=== PATIENT | female | born 1960 | race Hispanic/Latino ===

== ENCOUNTER 2018-03-24 10:18 | Emergency (ER) | payer SELFPAY ==
[2018-03-24] MEDS ORDERED: FAMOTIDINE 20 MG/2 ML VIAL IV ONE (10:54)
[2018-03-24 11:22] LABS: Absolute Monocytes 0.4 K/uL (0.1-1.3); Basophils % 1.4 % (0-1.3); Eosinophils % 1.1 % (0-4.4); Lymphocytes % 30.5 % (15.3-44.8); MCH 29.2 pg (27.0-35.0); MCV 89.1 fL (80-100); MPV 9.2 fL (7.6-11.3); Monocytes % 6.7 % (3.3-12.3); RBC Red Blood Cell Count 4.71 M/uL (3.86-4.86)
[2018-03-24 11:23] LABS: Protime INR 1.04
[2018-03-24 11:34] LABS: Bicarbonate 25 mEq/L (21-31); Glucose Level 107 mg/dL (65-120); Potassium 3.6 mEq/L (3.6-5.0); Sodium Level 138 mEq/L (135-145)
[2018-03-24 11:40] LABS: ALT/SGPT 21 IU/L (10-60); AST/SGOT 24 IU/L (10-42); Albumin 4.1 g/dL (3.2-5.5); Alkaline Phosphatase 83 IU/L (42-121); BUN Blood Urea Nitrogen 10 mg/dL (6-20); Bilirubin Direct 0.1 mg/dL (0-0.2); Bilirubin Total 0.8 mg/dL (0.3-1.2); Magnesium 2.1 mg/dL (1.8-2.5); Protein, Total 7.6 g/dL (6.0-8.3)
--- NOTE | 2018-03-24 12:28 | RAD REPORT ---
EXAM DESCRIPTION: Zachariah Single View03/24/2018 11:03 am CLINICAL HISTORY: Chest pain COMPARISON: none FINDINGS: The lungs appear clear of acute infiltrate. The heart is normal size IMPRESSION: No acute abnormalities displayed
--- NOTE | 2018-03-24 13:56 | ER ---
Nurse's Notes [facility] Name: Eula Mauro Age: 57 yrs Sex: Female : 1960 Arrival Date: 03/24/2018 Time: 10:24 Bed 13 Private MD: Diagnosis: Chest pain, unspecified Presentation: 03/24 10:15 Presenting complaint: EMS states: Pt. is 57 yr. old female that works at [employer] and c/o chest pain that radiates to the back with severe indigestion. Pain 9/10. EMS administered Nitro Neola x 1 and Aspirin 324 mg PO. Pt. is Libyan speaking only. Pt. has NKA. 12- lead was negative. Transition of care: patient was not received from another setting of care. Onset of symptoms was March 24, 2018 at 09:50. Initial Sepsis Screen: Does the patient meet any 2 criteria? No. Patient's initial sepsis screen is negative. Does the patient have a suspected source of infection? No. Patient's initial sepsis screen is negative. Care prior to arrival: Medication(s) given: ASA, 324 mg x 1 Nitro spray x 1. 10:15 Method Of Arrival: EMS: [facility] rb1 10:15 Acuity: LIYA 3 rb1 Triage Assessment: 10:15 General: Appears in no apparent distress. comfortable, Behavior is calm, cooperative. rb1 Pain: Complains of pain in chest Pain radiates to left scapular area Pain is intermittent and pt. denies pain at this time. Neuro: Level of Consciousness is awake, alert, obeys commands, Oriented to person, place, time, situation. Neuro: Reports dizziness. Cardiovascular: Capillary refill < 3 seconds is brisk in bilateral fingers. Respiratory: Airway is patent Respiratory effort is even, unlabored, Respiratory pattern is regular, symmetrical. GI: Reports nausea. : No signs and/or symptoms were reported regarding the genitourinary system. Derm: Skin is dry, Skin is normal, Skin temperature is warm. Musculoskeletal: Range of motion: intact in all extremities. 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 - Social history:: Smoking status: Patient/guardian denies using tobacco. Screenin:15 Abuse screen: Denies threats or abuse. Nutritional screening: No deficits noted. rb1 Tuberculosis screening: No symptoms or risk factors identified. Fall Risk None identified. Assessment: 10:15 Pain: Pain began 30 min ago. rb1 10:15 General: See triage assessment. rb1 11:11 Reassessment: Patient appears in no apparent distress at this time. Patient and/or rb1 family updated on plan of care and expected duration. Pain level reassessed. Patient is alert, oriented x 3, equal unlabored respirations, skin warm/dry/pink. Family at bedside. Patient denies pain at this time. 12:10 Reassessment: Patient appears in no apparent distress at this time. No changes from rb1 previously documented assessment. 13:09 Reassessment: Patient appears in no apparent distress at this time. Patient and/or rb1 family updated on plan of care and expected duration. Pain level reassessed. Patient is alert, oriented x 3, equal unlabored respirations, skin warm/dry/pink. Patient states feeling better. 14:00 Reassessment: Patient appears in no apparent distress at this time. No changes from rb1 previously documented assessment. Family at bedside. Vital Signs: 10:15 BP 122 / 74; Pulse 69; Resp 18; Temp 98.0(O); Pulse Ox 99% on R/A; Weight 63.96 kg; rb1 Height 5 ft. 1 in. (154.94 cm); Pain 0/10; 12:29 BP 111 / 56; Pulse 61; Resp 18; Pulse Ox 100% on R/A; rb1 13:30 BP 111 / 65; Pulse 52; Resp 16; Pulse Ox 100% on R/A; Pain 0/10; rb1 14:00 BP 121 / 77; Pulse 57; Resp 20; Pulse Ox 100% on R/A; Pain 0/10; rb1 14:25 BP 121 / 77; Pulse 59; Resp 16; Pulse Ox 100% on R/A; rb1 10:15 Body Mass Index 26.64 (63.96 kg, 154.94 cm) rb1 ED Course: 10:15 Maintain EMS IV. Dressing intact. Good blood return noted. Site clean \T\ dry. Gauge \T\ rb 1 site: 20 g Right AC. Patient maintains SpO2 saturation greater than 95% on room air. 10:15 Patient has correct armband on for positive identification. 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 Pulse rb1 ox on. NIBP on. 10:15 Arm band placed on right wrist. rb1 10:24 Patient arrived in ED. aa5 10:24 Gagan Mccallum PA is PHCP. jr8 10:24 Esteban Irving MD is Attending Physician. jr8 10:30 EKG done, by ED staff, reviewed by Gagan NUNEZ. em1 10:32 Nereida Brasher, RN is Primary Nurse. rb1 10:37 Triage completed. rb1 10:56 Initial lab(s) drawn, by me, sent to lab. em1 11:03 XRAY Chest (1 view) In Process Unspecified. EDMS 13:55 Andre Ortiz MD is Referral Physician. jr8 14:27 No provider procedures requiring assistance completed. IV discontinued, intact, rb1 bleeding controlled, No redness/swelling at site. Pressure dressing applied. Administered Medications: 10:58 Drug: Pepcid 20 mg Route: IVP; Site: right antecubital; rb1 11:14 Follow up: Response: No adverse reaction rb1 Outcome: 13:56 Discharge ordered by MD. jr8 14:27 Discharged to home ambulatory, with family. rb1 14:27 Condition: stable 14:27 Discharge instructions given to patient, Instructed on discharge instructions, the need for admit, Demonstrated understanding of instructions, follow-up care, Prescriptions given X none 14:28 Patient left the ED. rb1 Signatures: Dispatcher [employer] EDMS Chandler Soares em1 Lillie Gonzalez, DISHA RN aa5 Gagan Mccallum PA PA jr8 Nereida Brasher, RN RN rb1 Corrections: (The following items were deleted from the chart) 12:28 10:15 Pain: Pain began 30 min ago. rb1 rb1
--- NOTE | 2018-03-24 13:56 | EDPHYS ---
Physician Documentation [facility] Name: Eula Mauro Age: 57 yrs Sex: Female : 1960 Arrival Date: 03/24/2018 Time: 10:24 Bed 13 Private MD: ED Physician Esteban Irving HPI: 03/24 10:36 This 57 yrs old Female presents to ER via Unassigned with complaints of Chest jr8 Pain. 10:36 The patient or guardian reports chest pain that is located primarily in the substernal jr8 area. Onset: acutely, today. The pain radiates to the left arm. Associated signs and symptoms: The patient has no apparent associated signs or symptoms. The chest pain is described as dull. Duration: The patient or guardian reports multiple episodes, that are intermittent. Modifying factors: The symptoms are alleviated by nothing. the symptoms are aggravated by nothing. Severity of pain: At its worst the pain was mild in the emergency department the pain is unchanged. The patient has not experienced similar symptoms in the past. The patient has not recently seen a physician. 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 - Social history:: Smoking status: Patient/guardian denies using tobacco. ROS: 10:36 Eyes: Negative for injury, pain, redness, and discharge, ENT: Negative for injury, jr8 pain, and discharge, Neck: Negative for injury, pain, and swelling, Respiratory: Negative for shortness of breath, cough, wheezing, and pleuritic chest pain, Abdomen/GI: Negative for abdominal pain, nausea, vomiting, diarrhea, and constipation, Back: Negative for injury and pain, MS/Extremity: Negative for injury and deformity, Skin: Negative for injury, rash, and discoloration, Neuro: Negative for headache, weakness, numbness, tingling, and seizure. 10:36 Cardiovascular: Positive for chest pain, Negative for edema, orthopnea, palpitations, paroxysmal nocturnal dyspnea. Exam: 10:36 Eyes: Pupils equal round and reactive to light, extra-ocular motions intact. Lids and jr8 lashes normal. Conjunctiva and sclera are non-icteric and not injected. Cornea within normal limits. Periorbital areas with no swelling, redness, or edema. ENT: Nares patent. No nasal discharge, no septal abnormalities noted. Tympanic membranes are normal and external auditory canals are clear. Oropharynx with no redness, swelling, or masses, exudates, or evidence of obstruction, uvula midline. Mucous membranes moist. Neck: Trachea midline, no thyromegaly or masses palpated, and no cervical lymphadenopathy. Supple, full range of motion without nuchal rigidity, or vertebral point tenderness. No Meningismus. Cardiovascular: Regular rate and rhythm with a normal S1 and S2. No gallops, murmurs, or rubs. Normal PMI, no JVD. No pulse deficits. Respiratory: Lungs have equal breath sounds bilaterally, clear to auscultation and percussion. No rales, rhonchi or wheezes noted. No increased work of breathing, no retractions or nasal flaring. Abdomen/GI: Soft, non-tender, with normal bowel sounds. No distension or tympany. No guarding or rebound. No evidence of tenderness throughout. Back: No spinal tenderness. No costovertebral tenderness. Full range of motion. Skin: Warm, dry with normal turgor. Normal color with no rashes, no lesions, and no evidence of cellulitis. MS/ Extremity: Pulses equal, no cyanosis. Neurovascular intact. Full, normal range of motion. Neuro: Awake and alert, GCS 15, oriented to person, place, time, and situation. Cranial nerves II-XII grossly intact. Motor strength 5/5 in all extremities. Sensory grossly intact. Cerebellar exam normal. Normal gait. Vital Signs: 10:15 BP 122 / 74; Pulse 69; Resp 18; Temp 98.0(O); Pulse Ox 99% on R/A; Weight 63.96 kg; rb1 Height 5 ft. 1 in. (154.94 cm); Pain 0/10; 12:29 BP 111 / 56; Pulse 61; Resp 18; Pulse Ox 100% on R/A; rb1 13:30 BP 111 / 65; Pulse 52; Resp 16; Pulse Ox 100% on R/A; Pain 0/10; rb1 14:00 BP 121 / 77; Pulse 57; Resp 20; Pulse Ox 100% on R/A; Pain 0/10; rb1 14:25 BP 121 / 77; Pulse 59; Resp 16; Pulse Ox 100% on R/A; rb1 10:15 Body Mass Index 26.64 (63.96 kg, 154.94 cm) rb1 MDM: 10:24 Patient medically screened. jr8 10:37 Differential diagnosis: acute myocardial infarction, acute pericarditis, chest wall jr8 pain, cholecystitis, Cholelithiasis costochondritis, esophagitis, gastritis, gastroesophageal reflux disease (GERD), pneumonia, pulmonary embolus, thoracic aortic disection, unstable angina. The patient was not given aspirin in the Emergency Department. Administered by EMS. 13:54 HEART Score: History: Slightly Suspicious (0), ECG: Normal (0), Age: > 45 and < 65 jr8 years (1), Risk Factors: No Risk Factors Known (0), Troponin: < or = 1 x Normal Limit (0). Data reviewed: vital signs, nurses notes, lab test result(s), EKG, radiologic studies, plain films, and as a result, I will discharge patient. Data interpreted: Pulse oximetry: on room air is 100 %. Interpretation: normal. Counseling: I had a detailed discussion with the patient and/or guardian regarding: the historical points, exam findings, and any diagnostic results supporting the discharge/admit diagnosis, lab results, radiology results, the need for outpatient follow up, a dock hand, to return to the emergency department if symptoms worsen or persist or if there are any questions or concerns that arise at home. 03/24 10:36 Order name: Basic Metabolic Panel; Complete Time: 11:03/24 10:36 Order name: BNP; Complete Time: 12:03/24 10:36 Order name: CBC with Diff; Complete Time: 11:03/24 10:36 Order name: LFT's; Complete Time: 11:03/24 10:36 Order name: Magnesium; Complete Time: :03/24 10:36 Order name: PT-INR; Complete Time: 11:03/24 10:36 Order name: Troponin (emerg Dept Use Only); Complete Time: 12:47 03/24 10:36 Order name: XRAY Chest (1 view); Complete Time: 12:37 03/24 10:36 Order name: EKG; Complete Time: 10:37 03/24 10:36 Order name: Cardiac monitoring; Complete Time: 12:29 03/24 10:36 Order name: EKG - Nurse/Tech; Complete Time: 10:56 03/24 10:36 Order name: IV Saline Lock; Complete Time: 12:30 03/24 12:59 Order name: Troponin (emerg Dept Use Only); Complete Time: 13:54 aa5 03/24 10:36 Order name: Labs collected and sent; Complete Time: 10:56 03/24 10:36 Order name: O2 Per Protocol; Complete Time: 12:30 03/24 10:36 Order name: O2 Sat Monitoring; Complete Time: 12:30 Administered Medications: 10:58 Drug: Pepcid 20 mg Route: IVP; Site: right antecubital; rb1 11:14 Follow up: Response: No adverse reaction rb1 Disposition: 03/25 09:18 Co-signature as Attending Physician, Esteban Irving MD I agree with the assessment and [facility] plan of care. Disposition: 03/24/18 13:56 Discharged to Home. Impression: Chest pain, unspecified. - Condition is Stable. - Discharge Instructions: Nonspecific Chest Pain, Aspirin and Your Heart. - Medication Reconciliation Form, Thank You Letter, Antibiotic Education, Prescription Opioid Use form. - Follow up: Andre Ortiz MD; When: 1 - 2 days; Reason: Recheck today's complaints, Continuance of care, Re-evaluation by your physician. - Problem is new. - Symptoms have improved. Signatures: Dispatcher [employer] EDEsteban Ibanez MD MD cha Roszak, Josh, PA PA jr8 Nereida Brasher, RN RN rb1 Corrections: (The following items were deleted from the chart) 03/24 14:27 10:36 Urine Dipstick-Ancillary ordered. jr8 rb1 14:28 13:56 03/24/2018 13:56 Discharged to Home. Impression: Chest pain, unspecified. rb1 Condition is Stable. Forms are Medication Reconciliation Form, Thank You Letter, Antibiotic Education, Prescription Opioid Use. Follow up: Andre Ortiz; When: 1 - 2 days; Reason: Recheck today's complaints, Continuance of care, Re-evaluation by your physician. Problem is new. Symptoms have improved. jr8
--- NOTE | 2018-03-24 14:04 | EKG ---
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
== END 2018-03-24 14:28 | disposition home or self-care (01) ==
LOC: ER 10:18
DX: R07.9 Chest pain, unspecified (principal); R73.03 Prediabetes
CPT/HCPCS: 36415; 71045; 80048; 80076; 83735; 83880; 84484; 85025; 85610; 93005; 96374; 99285

== ENCOUNTER 2021-06-03 17:21 | Emergency (ER) | payer SELFPAY ==
--- NOTE | 2021-06-03 18:26 | EDPHYS ---
Physician Documentation [facility] Name: Eula Mauro Age: 60 yrs Sex: Female : 1960 Arrival Date: 06/03/2021 Time: 17:24 Bed Waiting Private MD: Tevin Haynes R ED Physician Esteban Irving HPI: 06/03 18:20 This 60 yrs old Female presents to ER via Ambulatory with complaints of Eye luis Problem. 18:20 to the right eye. Onset: The symptoms/episode began/occurred today. luis Historical: - Allergies: 18:08 No Known Allergies; tw2 - Home Meds: 18:08 None [Active]; tw2 - PMHx: 18:08 Pre-Diabetes; tw2 - Immunization history:: Adult Immunizations. - Social history:: Smoking status: . ROS: 18:20 Constitutional: Negative for fever, chills, and weight loss, ENT: Negative for injury, luis pain, and discharge, Neck: Negative for injury, pain, and swelling, Cardiovascular: Negative for chest pain, palpitations, and edema, Respiratory: Negative for shortness of breath, cough, wheezing, and pleuritic chest pain, Abdomen/GI: Negative for abdominal pain, nausea, vomiting, diarrhea, and constipation, Back: Negative for injury and pain, : Negative for injury, bleeding, discharge, and swelling, MS/Extremity: Negative for injury and deformity, Skin: Negative for injury, rash, and discoloration, Neuro: Negative for headache, weakness, numbness, tingling, and seizure, Psych: Negative for depression, anxiety, suicide ideation, homicidal ideation, and hallucinations, Allergy/Immunology: Negative for hives, rash, and allergies, Endocrine: Negative for neck swelling, polydipsia, polyuria, polyphagia, and marked weight changes, Hematologic/Lymphatic: Negative for swollen nodes, abnormal bleeding, and unusual bruising. 18:20 Eyes: Positive for right brow weakness. Exam: 18:20 Constitutional: This is a well developed, well nourished patient who is awake, alert, luis and in no acute distress. Head/Face: Normocephalic, atraumatic. Eyes: Pupils equal round and reactive to light, extra-ocular motions intact. Lids and lashes normal. Conjunctiva and sclera are non-icteric and not injected. Cornea within normal limits. Periorbital areas with no swelling, redness, or edema. ENT: Nares patent. No nasal discharge, no septal abnormalities noted. Tympanic membranes are normal and external auditory canals are clear. Oropharynx with no redness, swelling, or masses, exudates, or evidence of obstruction, uvula midline. Mucous membranes moist. Neck: Trachea midline, no thyromegaly or masses palpated, and no cervical lymphadenopathy. Supple, full range of motion without nuchal rigidity, or vertebral point tenderness. No Meningismus. Chest/axilla: Normal chest wall appearance and motion. Nontender with no deformity. No lesions are appreciated. Cardiovascular: Regular rate and rhythm with a normal S1 and S2. No gallops, murmurs, or rubs. Normal PMI, no JVD. No pulse deficits. Respiratory: Lungs have equal breath sounds bilaterally, clear to auscultation and percussion. No rales, rhonchi or wheezes noted. No increased work of breathing, no retractions or nasal flaring. Abdomen/GI: Soft, non-tender, with normal bowel sounds. No distension or tympany. No guarding or rebound. No evidence of tenderness throughout. Back: No spinal tenderness. No costovertebral tenderness. Full range of motion. Female : Normal external genitalia. Skin: Warm, dry with normal turgor. Normal color with no rashes, no lesions, and no evidence of cellulitis. MS/ Extremity: Pulses equal, no cyanosis. Neurovascular intact. Full, normal range of motion. Psych: Awake, alert, with orientation to person, place and time. Behavior, mood, and affect are within normal limits. 18:20 Neuro: Orientation: is normal, appropriate for stated age, no acute changes, Mentation: is normal, appropriate for stated age, no acute changes, Memory: is normal, appropriate for stated age, no acute changes, Cranial nerves: grossly normal, facial droop noted on right, with forehead involved. Cerebellar function: is grossly normal, is grossly normal based on the patient's age, no acute changes, Motor: is normal, is grossly normal based on the patient's age, no acute changes, moves all fours, strength is normal, Sensation: is normal, no obvious gross deficits, appropriate no acute changes, Gait: is steady, Babinski testing is normal, seizure activity, is not displayed by the patient. Vital Signs: 18:05 BP 129 / 104; Pulse 108; Resp 17; Temp 98.2(O); Pulse Ox 99% on R/A; Weight 65.77 kg tw2 (R); 18:38 BP 126 / 77; Pulse 102; Resp 17; Pulse Ox 100% on R/A; tw2 MDM: 18:23 Data reviewed: vital signs, nurses notes. Data interpreted: media monitor: rate is luis 108 beats/min, rhythm is regular, Pulse oximetry: is not applicable for this patient encounter. on room air is 99 %. Test interpretation: by ED physician or midlevel provider:. Counseling: I had a detailed discussion with the patient and/or guardian regarding: the historical points, exam findings, and any diagnostic results supporting the discharge/admit diagnosis, the need for outpatient follow up, for definitive care, a family practitioner, a neurologist. 18:25 Patient medically screened. luis Administered Medications: No medications were administered Disposition Summary: 06/03/21 18:25 Discharge Ordered Location: Home luis Problem: new luis Symptoms: have improved luis Condition: Stable luis Diagnosis - Galdamez's palsy luis Followup: luis - With: Tevin Haynes MD - When: 2 - 3 days - Reason: Recheck today's complaints, Continuance of care, Re-evaluation by your physician Followup: luis - With: Addison Gonzales MD - When: 2 - 3 days - Reason: Recheck today's complaints, Re-evaluation by your physician Discharge Instructions: - Discharge Summary Sheet luis - Galdamez Palsy, Adult luis - Aspirin and Your Heart luis Forms: - Medication Reconciliation Form luis - Thank You Letter luis - Antibiotic Education luis - Prescription Opioid Use luis Prescriptions: - Artificial Tears (PF) - instill 1 application by OPHTHALMIC route 8 times per day use as needed; 30 luis milliliter; Refills: 0, Product Selection Permitted - Valtrex 1 gram Oral tablet - take 1 tablet by ORAL route 3 times per day; 21 tablet; Refills: 0, Product luis Selection Permitted - Prednisone 20 mg Oral Tablet - take 2 tablets by ORAL route once daily for 5 days; 10 tablet; Refills: 0, luis Product Selection Permitted Signatures: Aristides, Esteban, MD MD luis Almaguer, Sangita, RN RN tw2
--- NOTE | 2021-06-03 18:26 | ER ---
Nurse's Notes [facility] Name: Eula Mauro Age: 60 yrs Sex: Female : 1960 Arrival Date: 06/03/2021 Time: 17:24 Bed Waiting Private MD: Tevin Haynes R Diagnosis: Galdamez's palsy Presentation: 06/03 18:05 Chief complaint: Patient states: this morning at what time i felt like my face was tw2 leaning and drooping on the left. about 930 this morning. Coronavirus screen: At this time, the client does not indicate any symptoms associated with coronavirus-19. Ebola Screen: Patient denies travel to an Ebola-affected area in the 21 days before illness onset. Initial Sepsis Screen: Does the patient meet any 2 criteria? HR > 90 bpm. Does the patient have a suspected source of infection? No. Patient's initial sepsis screen is negative. Risk Assessment: Do you want to hurt yourself or someone else? Patient reports no desire to harm self or others. Onset of symptoms was June 03, 2021. 18:05 Method Of Arrival: Ambulatory tw2 18:05 Acuity: LIYA 2 tw2 18:08 Chief complaint: Patient states: i think it might be nerves because they wanted to take tw2 me to [place] and i didn't want to go swimming because i am scared of water. 18:[address] irving in triage room at this time. tw2 Triage Assessment: 18:16 General: Appears in no apparent distress. well groomed, Behavior is anxious. Pain: tw2 Denies pain. EENT: left eye droop and closes on its own. Historical: - Allergies: 18:08 No Known Allergies; tw2 - Home Meds: 18:08 None [Active]; tw2 - PMHx: 18:08 Pre-Diabetes; tw2 - Immunization history:: Adult Immunizations. - Social history:: Smoking status: . Screenin:17 Abuse screen: Denies threats or abuse. Nutritional screening: No deficits noted. tw2 Tuberculosis screening: No symptoms or risk factors identified. Fall Risk None identified. Assessment: 18:39 Reassessment: Patient appears in no apparent distress at this time. Patient and/or tw2 family updated on plan of care and expected duration. Pain level reassessed. Patient is alert, oriented x 3, equal unlabored respirations, skin warm/dry/pink. 18:40 General: Appears in no apparent distress. well groomed, Behavior is calm, cooperative, tw2 appropriate for age. Pain: Denies pain. Neuro: Level of Consciousness is awake, alert, obeys commands, Oriented to person, place, time, situation. Respiratory: Airway is patent Respiratory effort is even, unlabored, Respiratory pattern is regular, symmetrical. Musculoskeletal: Range of motion: intact in all extremities. Vital Signs: 18:05 BP 129 / 104; Pulse 108; Resp 17; Temp 98.2(O); Pulse Ox 99% on R/A; Weight 65.77 kg tw2 (R); 18:38 BP 126 / 77; Pulse 102; Resp 17; Pulse Ox 100% on R/A; tw2 ED Course: 17:24 Patient arrived in ED. mr 17:24 Tevin Haynes MD is Private Physician. mr 18:08 Triage completed. tw2 18:16 Arm band placed on. tw2 18:19 Esteban Irving MD is Attending Physician. [facility] 18:24 Tevin Haynes MD is Referral Physician. [facility] 18:24 Addison Gonzales MD is Referral Physician. [facility] 18:39 pt seen in triage room and medicated at this time. tw2 18:40 No provider procedures requiring assistance completed. Patient did not have IV access tw2 during this emergency room visit. Administered Medications: No medications were administered Outcome: 18:25 Discharge ordered by . [facility] 18:41 Discharged to home ambulatory. tw2 18:41 Condition: stable 18:41 Discharge instructions given to patient, Instructed on discharge instructions, follow up and referral plans. medication usage, Demonstrated understanding of instructions, follow-up care, medications, Prescriptions given X 3. 18:41 Patient left the ED. tw2 Signatures: Esteban Irving MD MD cha Rivera, Mary Sangita Almaguer, RN RN tw2
[2021-06-03] MEDS ORDERED: VALACYCLOVIR 500 MG TAB ONE (18:59)
[2021-06-03 19:00] VITALS: TEMP 98.2
[2021-06-03] MEDS ORDERED: predniSONE 20 MG TAB ONE (19:00)
[2021-06-03 19:02] VITALS: BP 126/77; O2SAT 100
== END 2021-06-03 18:41 | disposition home or self-care (01) ==
LOC: ER 17:21
DX: G51.0 Bell's palsy (principal); R73.03 Prediabetes
CPT/HCPCS: 99282; J7512